=== PATIENT | female | born 1955 | race Hispanic/Latino ===

== ENCOUNTER → 2024-08-10 | Outpatient (CLI) | payer MEDICARE ==
[~2024-08-10] MED LIST: GADOTERATE MEGLUMINE 5 MMOL/10 ML VIAL IV ONE
--- NOTE | 2024-08-10 09:55 | HMCIMG ---
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 Axial T1, T2 and proton density images were also acquired. FINDINGS: Examination shows adequate alignment of the vertebral bodies of the lumbar spine. No fractures or dislocations are identified.The bone marrow signal is normal for age. The spinal canal contents are preserved. The conus terminates at a normal level at T12 to L2. The paraspinal muscles and other tissues show no significant abnormalities. Evaluation of the lumbar spine by level: T12-L1: There is no spinal canal stenosis. No disc herniation or bulge is noted. There is no neural foraminal stenosis, impingement, or narrowing. L1-L2: There is a broad-based posterior bulge causing neural foramina narrowing bilaterally at this level. No nerve root impingement seen. L2-L3: There is a broad-based posterior bulge causing neural foramina narrowing bilaterally at this level. No nerve root impingement seen. L3-L4: There is a broad-based posterior bulge causing neural foramina narrowing bilaterally at this level. No nerve root impingement seen. L4-L5: There is a broad-based posterior bulge causing neural foramina narrowing bilaterally at this level. No nerve root impingement seen. L5-S1: There is no spinal canal stenosis. No disc herniation or bulge is noted. There is no neural foraminal stenosis, impingement, or narrowing. Impression: Multilevel disc protrusions without nerve root impingement as noted.
--- NOTE | 2024-08-10 10:02 | HMCIMG ---
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 Axial T1, T2 and proton density images were also acquired. Findings: Right subarticular zone disc extrusion with mild colon migration seen at T6-7, causing right nerve root impingement anteriorly. Mild protrusions seen at T5-6, T7-8, T8-9, and T9-10, without impingement or neural foraminal encroachment. No other protrusions or extrusions are identified. No abnormal enhancement is seen after gadolinium administration. The spinal canal contents are otherwise preserved. No fractures or dislocations or lesions suspicious for neoplasm. IMPRESSION: Disc protrusions and extrusions as noted above.
== END | disposition home or self-care (01) ==
LOC: RAH 07:34
PROVIDERS: ATTEND Internal Medicine Medical Oncology
DX: S34.119A Complete lesion of unspecified level of lumbar spinal cord, initial encounter (principal); M51.25 Other intervertebral disc displacement, thoracolumbar region; M51.369 Other intervertebral disc degeneration, lumbar region without mention of lumbar back pain or lower extremity pain; M48.061 Spinal stenosis, lumbar region without neurogenic claudication; X58.XXXA Exposure to other specified factors, initial encounter; Y93.89 Activity, other specified; Y92.89 Other specified places as the place of occurrence of the external cause; Y99.8 Other external cause status
CPT/HCPCS: 72158; 72157; A9575